=== PATIENT | female | born 1970 | race Caucasian/White ===

== ENCOUNTER 2018-04-03 20:25 | Emergency (ER) | payer MEDICARE, MEDICAID ==
[~2018-04-03] VITALS: Ht 167.6 cm; Wt 100.0 kg
[~2018-04-03 20:25] MED LIST: ALBU6.7H INH; BACDS PO; CEPH-357 PO; CYCL-1 PO; ESCI10TA45 PO; ESCI20TA29 PO; EST1T PO; MECL-111 PO; PSEU120T84 PO
[2018-04-03] MEDS ORDERED: diphenhydrAMINE 50 mg/ml inj IV ONE (21:00)
[2018-04-03] MEDS ORDERED: predniSONE 20 mg tablet PO ONE (21:00)
[2018-04-03] MEDS ORDERED: famotidine/PF 10 mg/ml inj IV ONE (21:00)
[2018-04-03 21:45] LABS: BASOPHILS # (AUTO) 0.1 X10'3 (0-0.2); BASOPHILS % (AUTO) 0.6 % (0-1); EOSINOPHILS # (AUTO) 0.1 X10'3 (0-0.9); HEMATOCRIT 41.2 % (35.0-45.0); HEMOGLOBIN 14.2 g/dl (12.0-16.0); LYMPHOCYTES # (AUTO) 3.6 X10'3 (1.1-4.8); MEAN CORPUSCULAR HEMOGLOBIN 30.9 PG (27.0-31.0); MEAN CORPUSCULAR HGB CONC 34.5 % (33.0-36.5); MEAN CORPUSCULAR VOLUME 89.5 FL (78-98); MEAN PLATELET VOLUME 9.5 FL (7.4-10.4); MONOCYTES # (AUTO) 0.4 X10'3 (0-0.9); MONOCYTES % (AUTO) 5.1 % (2-12); NEUTROPHILS # (AUTO) 4.4 X10'3 (1.8-7.7); NEUTROPHILS % (AUTO) 51.3 % (42-75); PARTIAL THROMBOPLASTIN TIME 25 SECONDS (22-32); PLATELET COUNT 187 X10'3 (140-440); PROTHROMBIN TIME 10.4 SECONDS (9.0-12.0); RED CELL DISTRIBUTION WIDTH 12.1 % (11.5-14.5); WHITE BLOOD COUNT 8.6 X10'3 (4.5-11.0)
[2018-04-03 21:54] LABS: ALANINE AMINOTRANSFERASE 45 U/L (12-78); ALBUMIN 3.7 G/DL (3.4-5.0); ALKALINE PHOSPHATASE 99 IU/L (46-116); ANION GAP 9 (8-16); BILIRUBIN,TOTAL 0.7 MG/DL (0.1-1.0); BLOOD UREA NITROGEN 11 MG/DL (7-18); CALCIUM 9.1 MG/DL (8.5-10.1); CHLORIDE 104 MMOL/L (99-107); GLUCOSE 121 MG/DL (70-104); SODIUM 141 MMOL/L (135-145); TOTAL CARBON DIOXIDE 27.7 MMOL/L (24-32); TOTAL PROTEIN 7.3 G/DL (6.4-8.2); eGFR 60 ML/MIN
[2018-04-03 21:55] LABS: ASPARTATE AMINO TRANSFERASE 30 U/L (10-37); POTASSIUM 4.3 MMOL/L (3.5-5.1)
[2018-04-03 22:00] VITALS: BP 125/83
== END 2018-04-03 22:24 | disposition home or self-care (01) ==
LOC: ER 20:26
DX: L23.9 Allergic contact dermatitis, unspecified cause (principal); I77.6 Arteritis, unspecified; I10 Essential (primary) hypertension; G89.29 Other chronic pain; F41.9 Anxiety disorder, unspecified; F32.9 Major depressive disorder, single episode, unspecified; Z90.49 Acquired absence of other specified parts of digestive tract; Z90.710 Acquired absence of both cervix and uterus; Z96.89 Presence of other specified functional implants; Z88.5 Allergy status to narcotic agent; Z88.8 Allergy status to other drugs, medicaments and biological substances; Z79.899 Other long term (current) drug therapy
CPT/HCPCS: 36415; 80053; 85025; 85610; 85730; 96374; 96375; 99284; J1200; J3490; J7512

== ENCOUNTER 2018-05-04 21:50 | Emergency (ER) | payer MEDICARE, MEDICAID ==
[~2018-05-04] VITALS: Ht 167.6 cm; Wt 97.7 kg
[2018-05-04 22:17] LABS: BASOPHILS # (AUTO) 0.1 X10'3 (0-0.2); BASOPHILS % (AUTO) 0.7 % (0-1); EOSINOPHILS # (AUTO) 0.2 X10'3 (0-0.9); EOSINOPHILS % (AUTO) 1.7 % (0-6); HEMATOCRIT 41.1 % (35.0-45.0); LYMPHOCYTES # (AUTO) 4.3 X10'3 (1.1-4.8); LYMPHOCYTES % (AUTO) 41.1 % (21-51); MEAN CORPUSCULAR HEMOGLOBIN 30.4 PG (27.0-31.0); MEAN CORPUSCULAR VOLUME 89.4 FL (78-98); MEAN PLATELET VOLUME 8.6 FL (7.4-10.4); MONOCYTES # (AUTO) 0.6 X10'3 (0-0.9); NEUTROPHILS # (AUTO) 5.2 X10'3 (1.8-7.7); NEUTROPHILS % (AUTO) 50.5 % (42-75); PLATELET COUNT 225 X10'3 (140-440); RED CELL DISTRIBUTION WIDTH 12.9 % (11.5-14.5); WHITE BLOOD COUNT 10.4 X10'3 (4.5-11.0)
[2018-05-04] MEDS ORDERED: OMEP-50 PO (22:32)
[2018-05-04] MEDS ORDERED: BUSP10TA3 PO (22:32)
[2018-05-04] MEDS ORDERED: KEN0.1O TP (22:32)
[2018-05-04] MEDS ORDERED: GABA800T2 PO (22:32)
[2018-05-04] MEDS ORDERED: DOCU100C33 PO (22:32)
[2018-05-04] MEDS ORDERED: LURA80TA3 PO (22:32)
[2018-05-04] MEDS ORDERED: MORP60TA66 PO (22:32)
[2018-05-04] MEDS ORDERED: HYDR-3973 PO (22:32)
[2018-05-04] MEDS ORDERED: LISI-600 PO (22:32)
[2018-05-04] MEDS ORDERED: FLUO-1 PO (22:32)
[2018-05-04] MEDS ORDERED: TRAZ-219 PO (22:32)
[2018-05-04] MEDS ORDERED: HYDR-3686 PO (22:32)
[2018-05-04] MEDS ORDERED: LAMO100T89 PO (22:32)
[2018-05-04 22:33] LABS: ALANINE AMINOTRANSFERASE 50 U/L (12-78); ALBUMIN 3.6 G/DL (3.4-5.0); ALKALINE PHOSPHATASE 92 IU/L (46-116); ANION GAP 10 (8-16); ASPARTATE AMINO TRANSFERASE 19 U/L (10-37); BILIRUBIN,TOTAL 0.5 MG/DL (0.1-1.0); BLOOD UREA NITROGEN 9 MG/DL (7-18); BUN/CREATININE RATIO 6.1 (6.6-38.0); CALCIUM 8.8 MG/DL (8.5-10.1); CHLORIDE 101 MMOL/L (99-107); CREATININE 1.47 MG/DL (0.40-0.90); GLUCOSE 169 MG/DL (70-104); POTASSIUM 3.5 MMOL/L (3.5-5.1); SODIUM 139 MMOL/L (135-145); TOTAL CARBON DIOXIDE 28.1 MMOL/L (24-32); TOTAL PROTEIN 7.3 G/DL (6.4-8.2); eGFR 38 ML/MIN
[2018-05-04] MEDS ORDERED: CYCL10TA10 PO (22:33)
[2018-05-04] MEDS ORDERED: LORA0.5T PO (22:36)
[2018-05-04 22:42] LABS: ETHANOL < 0.010 GM/DL (0.0-0.010); MAGNESIUM 1.8 MG/DL (1.5-2.4)
[2018-05-04] MEDS ORDERED: normal saline 1000ml 1,000 ML IV ONE (22:50)
[2018-05-04 22:53] LABS: ACETAMINOPHEN < 2.0 UG/ML (10-30)
[2018-05-05 00:05] LABS: CLARITY,URINE CLEAR (Clear); COLOR,URINE STRAW (Yellow); GLUCOSE, URINE NEGATIVE (Neg); KETONES,URINE NEGATIVE (Neg); LEUKOCYTE ESTERASE ,URINE NEGATIVE (Neg); NITRITES, URINE NEGATIVE (Neg); OCCULT BLOOD,URINE NEGATIVE (Neg); PROTEIN,URINE NEGATIVE (Neg); UA COLLECTION TYPE CLN CATCH MIDSTREAM; URINE HCG NEGATIVE (NEG)
[2018-05-05 00:18] LABS: URINE AMPHETAMINE SCREEN NEGATIVE (Neg); URINE BARBITUATE SCREEN NEGATIVE (Neg); URINE BENZODIAZEPINES SCREEN NEGATIVE (Neg); URINE CANNABINOID SCREEN NEGATIVE (Neg); URINE COCAINE SCREEN NEGATIVE (Neg); URINE METHADONE SCREEN NEGATIVE (Neg); URINE OPIATE SCREEN POSITIVE (Neg); URINE PHENCYCLIDINE SCREEN NEGATIVE (Neg)
[2018-05-05] MEDS ORDERED: normal saline 1000ml 1,000 ML IV ONE (00:35)
[2018-05-05] MEDS ORDERED: LORazepam 0.5 MG tablet PO PRN (09:30)
[2018-05-05] MEDS ORDERED: ibuprofen 200mg tablet PO ONE (11:10)
[2018-05-05] MEDS ORDERED: cyclobenzaprine 10mg tablet PO ONE (11:25)
[2018-05-05] MEDS ORDERED: lamoTRIgine 25mg tablet PO ONE (11:25)
[2018-05-05] MEDS ORDERED: busPIRone 5mg tablet PO ONE (11:25)
[2018-05-05] MEDS ORDERED: morphine ER 30mg tablet PO ONE (11:25)
[2018-05-05] MEDS ORDERED: lisinopril 20mg tablet PO ONE (11:25)
[2018-05-05] MEDS ORDERED: estradiol 1mg tablet PO ONE (11:25)
[2018-05-05] MEDS ORDERED: pantoprazole 40mg Tablet.DR PO ONE (11:25)
[2018-05-05] MEDS ORDERED: FLUoxetine 20mg capsule PO ONE (11:25)
[2018-05-05] MEDS ORDERED: docusate sod 100mg capsule PO ONE (11:25)
[2018-05-05] MEDS ORDERED: lurasidone 20mg tablet PO ONE (11:25)
[2018-05-05] MEDS: gabapentin 400mg capsule PO SCH ×2 (13:35→21:20)
[2018-05-05] MEDS: hydrOXYzine 25 MG tablet PO SCH (16:00)
[2018-05-05] MEDS ORDERED: traZODone 50mg tablet PO SCH (21:00)
[2018-05-05] MEDS: lamoTRIgine 25mg tablet PO SCH (21:19)
[2018-05-05] MEDS: docusate sod 100mg capsule PO SCH (21:20)
[2018-05-05] MEDS: morphine ER 30mg tablet PO SCH (21:20)
[2018-05-05] MEDS: cyclobenzaprine 10mg tablet PO SCH (21:20)
[2018-05-05] MEDS: triamcinolone acet 0.1% cream 15gm TP SCH (21:21)
[2018-05-05] MEDS: busPIRone 5mg tablet PO SCH (21:21)
[2018-05-05] MEDS: HYDROcodone/acetaminophen 10/325mg tab PO PRN (21:26)
[2018-05-06] MEDS: hydrOXYzine 25 MG tablet PO SCH ×2 (01:31→08:52)
[2018-05-06] MEDS: HYDROcodone/acetaminophen 10/325mg tab PO PRN (05:52)
[2018-05-06 05:55] VITALS: BP_DIAS 91
[2018-05-06] MEDS ORDERED: estradiol 1mg tablet PO SCH (08:00)
[2018-05-06] MEDS ORDERED: lurasidone 20mg tablet PO SCH (08:00)
[2018-05-06] MEDS: triamcinolone acet 0.1% cream 15gm TP SCH (08:00)
[2018-05-06] MEDS ORDERED: lisinopril 20mg tablet PO SCH (08:00)
[2018-05-06] MEDS ORDERED: FLUoxetine 20mg capsule PO SCH (08:00)
[2018-05-06] MEDS ORDERED: pantoprazole 40mg Tablet.DR PO SCH (08:00)
[2018-05-06] MEDS: morphine ER 30mg tablet PO SCH (08:50)
[2018-05-06] MEDS: gabapentin 400mg capsule PO SCH ×2 (08:50→12:55)
[2018-05-06] MEDS: cyclobenzaprine 10mg tablet PO SCH (08:51)
[2018-05-06] MEDS: busPIRone 5mg tablet PO SCH (08:51)
[2018-05-06] MEDS: docusate sod 100mg capsule PO SCH (08:52)
[2018-05-06 09:00] VITALS: BP_SYST 72
[2018-05-06] MEDS: lamoTRIgine 25mg tablet PO SCH (10:07)
[2018-05-06] MEDS ORDERED: HYDROcodone/acetaminophen 10/325mg tab PO ONE (14:50)
== END 2018-05-06 15:23 ==
LOC: ER 21:50
DX: T42.4X2A Poisoning by benzodiazepines, intentional self-harm, initial encounter (principal); I10 Essential (primary) hypertension; M19.90 Unspecified osteoarthritis, unspecified site; F41.9 Anxiety disorder, unspecified; F32.9 Major depressive disorder, single episode, unspecified; Z88.6 Allergy status to analgesic agent; Z88.8 Allergy status to other drugs, medicaments and biological substances; Z79.899 Other long term (current) drug therapy; Z90.49 Acquired absence of other specified parts of digestive tract; Z98.890 Other specified postprocedural states; Z90.710 Acquired absence of both cervix and uterus; Z95.0 Presence of cardiac pacemaker; Y92.89 Other specified places as the place of occurrence of the external cause
CPT/HCPCS: 36415; 80053; 80305; 80320; 80329; 81003; 81025; 83735; 84100; 84443; 85025; 93005; 99285; Q0177; J7030

== ENCOUNTER 2020-01-10 12:58 | Emergency (ER) | payer MEDICARE, MEDICAID ==
[~2020-01-10] VITALS: Ht 167.6 cm; Wt 100.2 kg
[~2020-01-10 12:58] MED LIST changes: -ALBU6.7H INH; -BACDS PO; +BUSP10TA3 PO; -CEPH-357 PO; -CYCL-1 PO; +CYCL10TA10 PO; +DOCU100C33 PO; -ESCI10TA45 PO; -ESCI20TA29 PO; +FLUO-1 PO; +GABA800T11 PO; +HYDR-3686 PO; +HYDR-3973 PO; +KEN0.1O TP; +LAMO100T PO; +LISI-600 PO; +LORA0.5T PO; +LURA80TA3 PO; -MECL-111 PO; +MORP60TA77 PO; +OMEP-50 PO; -PSEU120T84 PO; +TRAZ-256 PO
[2020-01-10] MEDS ORDERED: aspirin 81mg tab.chew PO ONE (13:15)
[2020-01-10 13:33] LABS: BASOPHILS # (AUTO) 0.1 X10'3 (0-0.2); BASOPHILS % (AUTO) 0.7 % (0-1); EOSINOPHILS # (AUTO) 0.4 X10'3 (0-0.9); EOSINOPHILS % (AUTO) 4.7 % (0-6); HEMATOCRIT 37.6 % (35.0-45.0); HEMOGLOBIN 13.2 g/dl (12.0-16.0); LYMPHOCYTES # (AUTO) 3.5 X10'3 (1.1-4.8); LYMPHOCYTES % (AUTO) 37.3 % (21-51); MEAN CORPUSCULAR HEMOGLOBIN 31.8 PG (27.0-31.0); MEAN CORPUSCULAR HGB CONC 35.1 g/dL (33.0-36.5); MEAN CORPUSCULAR VOLUME 90.4 FL (78-98); MEAN PLATELET VOLUME 8.3 FL (7.4-10.4); MONOCYTES # (AUTO) 0.5 X10'3 (0-0.9); MONOCYTES % (AUTO) 5.1 % (2-12); NEUTROPHILS # (AUTO) 4.9 X10'3 (1.8-7.7); NEUTROPHILS % (AUTO) 52.2 % (42-75); PLATELET COUNT 203 X10'3 (140-440); RED BLOOD COUNT 4.16 X10'6 (4.20-5.60); RED CELL DISTRIBUTION WIDTH 13.8 % (11.5-14.5); WHITE BLOOD COUNT 9.3 X10'3 (4.5-11.0)
[2020-01-10 13:56] LABS: ALANINE AMINOTRANSFERASE 58 U/L (12-78); ALBUMIN 3.5 G/DL (3.4-5.0); ALKALINE PHOSPHATASE 81 IU/L (46-116); ANION GAP 10 (8-16); ASPARTATE AMINO TRANSFERASE 34 U/L (10-37); BILIRUBIN,TOTAL 0.6 MG/DL (0.1-1.0); BLOOD UREA NITROGEN 8 MG/DL (7-18); BUN/CREATININE RATIO 6.8 (6.6-38.0); CALCIUM 8.6 MG/DL (8.5-10.1); CHLORIDE 105 MMOL/L (99-107); CREATININE 1.17 MG/DL (0.40-0.90); GLUCOSE 122 MG/DL (70-104); POTASSIUM 3.7 MMOL/L (3.5-5.1); SODIUM 142 MMOL/L (135-145); TOTAL CARBON DIOXIDE 26.6 MMOL/L (24-32); eGFR 50 ML/MIN
[2020-01-10 15:03] LABS: D-DIMER 0.31 MG/L FEU (0-0.50)
[2020-01-10] MEDS ORDERED: ketorolac trometh. 30mg/ml inj. IM ONE (15:10)
[2020-01-10 15:23] VITALS: BP 158/80
== END 2020-01-10 15:25 | disposition home or self-care (01) ==
LOC: ER 12:59
DX: R07.89 Other chest pain (principal); R00.2 Palpitations; M19.90 Unspecified osteoarthritis, unspecified site; I10 Essential (primary) hypertension; G89.29 Other chronic pain; F41.9 Anxiety disorder, unspecified; F32.9 Major depressive disorder, single episode, unspecified; Z90.49 Acquired absence of other specified parts of digestive tract; Z90.710 Acquired absence of both cervix and uterus; Z95.0 Presence of cardiac pacemaker; Z98.890 Other specified postprocedural states; Z88.8 Allergy status to other drugs, medicaments and biological substances; Z79.899 Other long term (current) drug therapy
CPT/HCPCS: 36415; 71045; 80053; 84484; 85025; 85379; 93005; 96372; 99285; J1885

== ENCOUNTER 2020-10-06 22:15 | Emergency (ER) | payer MEDICAID, MEDICARE ==
[~2020-10-06] VITALS: Ht 167.6 cm; Wt 100.0 kg
[~2020-10-06 22:15] MED LIST changes: -LISI-600 PO; +LISI20TA28 PO
[2020-10-07] MEDS ORDERED: oxyCODONE IR 5mg (immed. release) tablet PO ONE (02:20)
[2020-10-07 03:03] VITALS: BP 145/87
== END 2020-10-07 03:06 | disposition home or self-care (01) ==
LOC: ER 22:16
DX: M79.671 Pain in right foot (principal); I10 Essential (primary) hypertension; K21.9 Gastro-esophageal reflux disease without esophagitis; M19.90 Unspecified osteoarthritis, unspecified site; G89.29 Other chronic pain; F32.9 Major depressive disorder, single episode, unspecified; F41.9 Anxiety disorder, unspecified; Z90.49 Acquired absence of other specified parts of digestive tract; Z90.710 Acquired absence of both cervix and uterus; Z98.890 Other specified postprocedural states; Z95.0 Presence of cardiac pacemaker; Z86.2 Personal history of diseases of the blood and blood-forming organs and certain disorders involving the immune mechanism; Z88.8 Allergy status to other drugs, medicaments and biological substances; Z79.899 Other long term (current) drug therapy; X50.1XXA Overexertion from prolonged static or awkward postures, initial encounter; Y93.89 Activity, other specified; Y92.89 Other specified places as the place of occurrence of the external cause; Y99.8 Other external cause status
CPT/HCPCS: 73630; 99284

== ENCOUNTER 2021-09-09 18:08 | Emergency (ER) | payer MEDICAID ==
[~2021-09-09] VITALS: Ht 167.6 cm; Wt 95.5 kg
[~2021-09-09 18:08] MED LIST changes: +CYCL-524 PO; -CYCL10TA10 PO; +LURA80TA2 PO; -LURA80TA3 PO; -OMEP-50 PO; +OMEP20CA16 PO
[2021-09-09 18:16] VITALS: BP 170/110
[2021-09-09] MEDS ORDERED: morphine 4 MG/ML inj SYRINge IM ONE (20:30)
[2021-09-09] MEDS ORDERED: ketorolac trometh inj. 60 MG/2 ML VIAL IM ONE (20:30)
== END 2021-09-09 21:02 | disposition home or self-care (01) ==
LOC: ER 18:09
DX: M54.50 Low back pain, unspecified (principal); R20.0 Anesthesia of skin; I10 Essential (primary) hypertension; K21.9 Gastro-esophageal reflux disease without esophagitis; M19.90 Unspecified osteoarthritis, unspecified site; G89.29 Other chronic pain; F41.9 Anxiety disorder, unspecified; F32.A Depression, unspecified; Z86.2 Personal history of diseases of the blood and blood-forming organs and certain disorders involving the immune mechanism; Z90.49 Acquired absence of other specified parts of digestive tract; Z90.710 Acquired absence of both cervix and uterus; Z95.0 Presence of cardiac pacemaker; Z98.890 Other specified postprocedural states; Z88.8 Allergy status to other drugs, medicaments and biological substances; Z79.899 Other long term (current) drug therapy; W19.XXXA Unspecified fall, initial encounter; Y93.89 Activity, other specified; Y92.89 Other specified places as the place of occurrence of the external cause; Y99.8 Other external cause status
CPT/HCPCS: 72074; 72100; 96372; 99284; J1885; J2270

== ENCOUNTER 2022-04-23 13:59 | Emergency (ER) | payer MEDICARE, MEDICAID ==
[~2022-04-23] VITALS: Ht 167.6 cm; Wt 90.0 kg
[2022-04-23 14:58] LABS: BASOPHILS # (AUTO) 0.1 X10'3 (0-0.2); BASOPHILS % (AUTO) 0.7 % (0-1); EOSINOPHILS % (AUTO) 0.2 % (0-6); HEMOGLOBIN 14.5 g/dl (12.0-16.0); LYMPHOCYTES # (AUTO) 3.3 X10'3 (1.1-4.8); LYMPHOCYTES % (AUTO) 39.9 % (21-51); MEAN CORPUSCULAR HEMOGLOBIN 27.7 PG (27.0-31.0); MEAN CORPUSCULAR HGB CONC 33.7 g/dL (33.0-36.5); MEAN CORPUSCULAR VOLUME 82.2 FL (78-98); MEAN PLATELET VOLUME 9.4 FL (7.4-10.4); MONOCYTES # (AUTO) 0.4 X10'3 (0-0.9); MONOCYTES % (AUTO) 4.9 % (2-12); NEUTROPHILS # (AUTO) 4.5 X10'3 (1.8-7.7); NEUTROPHILS % (AUTO) 54.3 % (42-75); PLATELET COUNT 192 X10'3 (140-440); RED BLOOD COUNT 5.23 X10'6 (4.20-5.60); RED CELL DISTRIBUTION WIDTH 12.4 % (11.5-14.5); WHITE BLOOD COUNT 8.3 X10'3 (4.5-11.0)
[2022-04-23 15:15] LABS: ALANINE AMINOTRANSFERASE 45 U/L (12-78); ALKALINE PHOSPHATASE 177 IU/L (46-116); ANION GAP 10 (8-16); ASPARTATE AMINO TRANSFERASE 23 U/L (10-37); BILIRUBIN,TOTAL 0.8 MG/DL (0.1-1.0); BLOOD UREA NITROGEN 7 MG/DL (7-18); BUN/CREATININE RATIO 5.9 (6.6-38.0); CALCIUM 9.4 MG/DL (8.5-10.1); CHLORIDE 89 MMOL/L (99-107); CREATININE 1.18 MG/DL (0.40-0.90); LIPASE 184 U/L (73-393); MAGNESIUM 1.9 MG/DL (1.5-2.4); POTASSIUM 4.3 MMOL/L (3.5-5.1); SODIUM 124 MMOL/L (135-145); TOTAL CARBON DIOXIDE 24.6 MMOL/L (24-32); eGFR 48 ML/MIN
[2022-04-23 15:18] LABS: CLARITY,URINE SLIGHTLY CLOUDY (Clear); GLUCOSE, URINE >=1000 mg/dl (Neg); KETONES,URINE NEGATIVE (Neg); LEUKOCYTE ESTERASE ,URINE NEGATIVE (Neg); NITRITES, URINE NEGATIVE (Neg); OCCULT BLOOD,URINE NEGATIVE (Neg); PH,URINE 5.5 (4.8-8.0); PROTEIN,URINE NEGATIVE (Neg); UROBILINOGEN,URINE 0.2 E.U/dL (0.2-1.0)
[2022-04-23 15:19] LABS: GLUCOSE 558 MG/DL (70-104)
[2022-04-23 15:24] LABS: COLOR,URINE STRAW (Yellow); UA COLLECTION TYPE NON-SPECIFIED
[2022-04-23 15:25] LABS: SQUAMOUS EPITHELIAL CELL,UR FEW /LPF (FEW); YEAST FEW /HPF (NEGATIVE)
[2022-04-23 15:26] LABS: BACTERIA,URINE FEW /HPF (Neg); RBC,URINE 0-2 /HPF (0-2); WBC,URINE 0-4 /HPF (0-4)
[2022-04-23] MEDS ORDERED: insulin regular, human 10 units/0.1 ml syringe IV ONE (16:40)
[2022-04-23] MEDS ORDERED: normal saline 1000ML IV soln IVB ONE (16:40)
[2022-04-23 18:04] VITALS: BP 151/103
--- NOTE | 2022-04-23 19:46 | NUR ---
IV DC'D PT BEING DISCHARGED DRESSING APPLIED
== END 2022-04-23 19:48 | disposition home or self-care (01) ==
LOC: ER 14:02
DX: E11.65 Type 2 diabetes mellitus with hyperglycemia (principal); R63.1 Polydipsia; R35.89 Other polyuria; I10 Essential (primary) hypertension; K21.9 Gastro-esophageal reflux disease without esophagitis; M19.90 Unspecified osteoarthritis, unspecified site; G89.29 Other chronic pain; M54.50 Low back pain, unspecified; Z88.8 Allergy status to other drugs, medicaments and biological substances; Z88.5 Allergy status to narcotic agent; Z90.49 Acquired absence of other specified parts of digestive tract; Z90.710 Acquired absence of both cervix and uterus
CPT/HCPCS: 36415; 80053; 81001; 82948; 83690; 83735; 85025; 96361; 96374; 99283; J1815; J7030

== ENCOUNTER 2022-07-04 09:27 | Emergency (ER) | payer MEDICARE, MEDICAID ==
[~2022-07-04] VITALS: Ht 167.6 cm; Wt 88.2 kg
[~2022-07-04 09:27] MED LIST changes: +BENZ1TAB7 PO; -BUSP10TA3 PO; +BUSP30TA3 PO; +CLON-330 PO; +CYCL-1 PO; -CYCL-524 PO; -DOCU100C33 PO; +DULA0.75 SQ; -EST1T PO; -FLUO-1 PO; +GABA600T13 PO; -GABA800T11 PO; +HYDR-3972 PO; -HYDR-3973 PO; -KEN0.1O TP; -LAMO100T PO; +LAMO150T6 PO; -LISI20TA28 PO; +LISI40TA13 PO; -LORA0.5T PO; +LURA120T PO; -LURA80TA2 PO; +MORP-92 PO; -MORP60TA77 PO; -OMEP20CA16 PO; +PANT40TA54 PO; +PROZ10C PO; +SOTA80TA73 PO; +SULF1TAB49 PO
[2022-07-04 10:13] LABS: CLARITY,URINE CLEAR (Clear); COLOR,URINE STRAW (Yellow); GLUCOSE, URINE NEGATIVE (Neg); KETONES,URINE NEGATIVE (Neg); LEUKOCYTE ESTERASE ,URINE NEGATIVE (Neg); NITRITES, URINE NEGATIVE (Neg); OCCULT BLOOD,URINE NEGATIVE (Neg); PROTEIN,URINE NEGATIVE (Neg)
[2022-07-04 10:17] LABS: UA COLLECTION TYPE CLN CATCH MIDSTREAM
[2022-07-04 10:40] LABS: URINE AMPHETAMINE SCREEN NEGATIVE (Neg); URINE BARBITUATE SCREEN NEGATIVE (Neg); URINE BENZODIAZEPINES SCREEN NEGATIVE (Neg); URINE CANNABINOID SCREEN NEGATIVE (Neg); URINE COCAINE SCREEN NEGATIVE (Neg); URINE METHADONE SCREEN NEGATIVE (Neg); URINE OPIATE SCREEN POSITIVE (Neg); URINE PHENCYCLIDINE SCREEN NEGATIVE (Neg)
[2022-07-04] MEDS ORDERED: normal saline 1000ML IV soln IV ONE (10:55)
[2022-07-04 11:10] LABS: BASOPHILS % (AUTO) 0.3 % (0-1); EOSINOPHILS # (AUTO) 0.3 X10'3 (0-0.9); EOSINOPHILS % (AUTO) 3.2 % (0-6); HEMATOCRIT 37.8 % (35.0-45.0); HEMOGLOBIN 12.6 g/dl (12.0-16.0); LYMPHOCYTES # (AUTO) 3.4 X10'3 (1.1-4.8); LYMPHOCYTES % (AUTO) 37.9 % (21-51); MEAN CORPUSCULAR HGB CONC 33.2 g/dL (33.0-36.5); MEAN CORPUSCULAR VOLUME 84.3 FL (78-98); MEAN PLATELET VOLUME 8.4 FL (7.4-10.4); MONOCYTES # (AUTO) 0.6 X10'3 (0-0.9); NEUTROPHILS # (AUTO) 4.6 X10'3 (1.8-7.7); NEUTROPHILS % (AUTO) 51.6 % (42-75); PLATELET COUNT 183 X10'3 (140-440); RED BLOOD COUNT 4.49 X10'6 (4.20-5.60); RED CELL DISTRIBUTION WIDTH 16.5 % (11.5-14.5); WHITE BLOOD COUNT 8.9 X10'3 (4.5-11.0)
[2022-07-04 11:34] LABS: ALANINE AMINOTRANSFERASE 30 U/L (12-78); ALBUMIN 3.3 G/DL (3.4-5.0); ALBUMIN/GLOBULIN RATIO 0.9 (1.1-1.5); ALKALINE PHOSPHATASE 86 IU/L (46-116); ANION GAP 8 (8-16); ASPARTATE AMINO TRANSFERASE 19 U/L (10-37); BILIRUBIN,TOTAL 0.5 MG/DL (0.1-1.0); BLOOD UREA NITROGEN 11 MG/DL (7-18); BUN/CREATININE RATIO 8.9 (6.6-38.0); CALCIUM 8.5 MG/DL (8.5-10.1); CHLORIDE 98 MMOL/L (99-107); CREATININE 1.23 MG/DL (0.40-0.90); GLUCOSE 124 MG/DL (70-104); MAGNESIUM 1.6 MG/DL (1.5-2.4); POTASSIUM 4.5 MMOL/L (3.5-5.1); SODIUM 132 MMOL/L (135-145); TOTAL CARBON DIOXIDE 25.9 MMOL/L (24-32); TOTAL PROTEIN 6.8 G/DL (6.4-8.2); eGFR 46 ML/MIN
[2022-07-04] MEDS ORDERED: normal saline 1000ML IV soln IVB ONE (12:30)
[2022-07-04 13:46] VITALS: BP 105/73
== END 2022-07-04 13:52 | disposition home or self-care (01) ==
LOC: ER 09:28
DX: I95.9 Hypotension, unspecified (principal); I10 Essential (primary) hypertension; K21.9 Gastro-esophageal reflux disease without esophagitis; E11.9 Type 2 diabetes mellitus without complications; M19.90 Unspecified osteoarthritis, unspecified site; G89.29 Other chronic pain; M54.50 Low back pain, unspecified; Z88.5 Allergy status to narcotic agent; Z88.8 Allergy status to other drugs, medicaments and biological substances; Z90.49 Acquired absence of other specified parts of digestive tract; Z98.890 Other specified postprocedural states; Z90.710 Acquired absence of both cervix and uterus
CPT/HCPCS: 36415; 80053; 80305; 81003; 82948; 83605; 83735; 84145; 85025; 87040; 93005; 96360; 96361; 99284; J7030

== ENCOUNTER 2024-09-05 08:19 | Day surgery (SDC) | payer MEDICARE, MEDICAID ==
[2024-09-01 12:02] LABS: BASOPHILS % (AUTO) 0.6 % (0-1); EOSINOPHILS % (AUTO) 0.6 % (0-6); LYMPHOCYTES # (AUTO) 2.4 X10'3 (1.1-4.8); LYMPHOCYTES % (AUTO) 33.4 % (21-51); MEAN CORPUSCULAR HEMOGLOBIN 33.4 PG (27.0-31.0); MEAN CORPUSCULAR HGB CONC 35.6 g/dL (33.0-36.5); MEAN CORPUSCULAR VOLUME 93.9 FL (78-98); MEAN PLATELET VOLUME 9.3 FL (7.4-10.4); MONOCYTES # (AUTO) 0.4 X10'3 (0-0.9); MONOCYTES % (AUTO) 5.6 % (2-12); NEUTROPHILS # (AUTO) 4.4 X10'3 (1.8-7.7); NEUTROPHILS % (AUTO) 59.8 % (42-75); PRE OP HEMATOCRIT 40.7 % (35.0-45.0); PRE OP HEMOGLOBIN 14.5 g/dL (12.0-16.0); PRE OP PLATELET COUNT 170 X10'3 (140-440); PRE OP WHITE BLOOD COUNT 7.3 10'3 (4.8-10.8); RED BLOOD COUNT 4.33 X10'6 (4.20-5.60)
[2024-09-01 12:15] LABS: PRE OP PROTIME 10.9 SECONDS (9.0-12.0)
[2024-09-01 12:17] LABS: ALBUMIN 3.5 G/DL (3.4-5.0); ALKALINE PHOSPHATASE 89 IU/L (46-116); BLOOD UREA NITROGEN 10 MG/DL (7-18); BUN/CREATININE RATIO 10.8 (10.0-20.0); CALCIUM 8.6 MG/DL (8.5-10.1); CHLORIDE 107 MMOL/L (99-107); CREATININE 0.93 MG/DL (0.40-0.90); PRE OP ALT 39 U/L (30-65); PRE OP ANION GAP 9 (8-16); PRE OP AST 27 U/L (10-37); PRE OP BILIRUB, TOTAL 0.9 MG/DL (0.0-1.0); PRE OP GLUCOSE 138 MG/DL (70-104); PRE OP POTASSIUM 4.2 MMOL/L (3.4-5.1); PRE OP SODIUM 141 MMOL/L (135-145); TOTAL CARBON DIOXIDE 25.3 MMOL/L (24-32); eGFR 63 ML/MIN
[2024-09-05] VITALS (11 sets, daily range): BP systolic 132–165; BP diastolic 79–105; PULSE 60–75; RESP 9–20; TEMP 97.5; O2SAT 75–98
[~2024-09-05] VITALS: Ht 167.6 cm; Wt 100.2 kg
[2024-09-05] MEDS: ceFAZolin 2gm in dextrose, iso 50 ML IV ONE (05:30)
[2024-09-05] MEDS: DOCUMENT DATE & TIME OF BETA-BLOCKER PO ONE (05:30)
[~2024-09-05 08:19] MED LIST changes: +ATOR20TA PO; -BENZ1TAB7 PO; +BISA-77 PO; -BUSP30TA3 PO; +CETI10TA14 PO; -CLON-330 PO; -CYCL-1 PO; +FLUO-331 PO; +GABA-1405 PO; -GABA600T13 PO; -HYDR-3686 PO; +IBUP-1985 PO; -LISI40TA13 PO; -LURA120T PO; +OMEP40CA21 PO; -PANT40TA54 PO; -PROZ10C PO; -SULF1TAB49 PO
[2024-09-05] MEDS ORDERED: LIDOcaine 1% (10mg/ml)w/preservative inj. 20ml MDV ONE ×2 (09:22→09:43)
[2024-09-05] MEDS: LIDOcaine 1% (10mg/ml) 2ml vial IM ONE (09:30)
[2024-09-05 09:38] LABS: BILIRUBIN,URINE NEGATIVE (Neg); CLARITY,URINE SLIGHTLY CLOUDY (Clear); COLOR,URINE YELLOW (Yellow); GLUCOSE, URINE NEGATIVE (Neg); KETONES,URINE NEGATIVE (Neg); LEUKOCYTE ESTERASE ,URINE NEGATIVE (Neg); NITRITES, URINE NEGATIVE (Neg); OCCULT BLOOD,URINE NEGATIVE (Neg); PROTEIN,URINE NEGATIVE (Neg)
[2024-09-05] MEDS: famotidine 20mg tablet PO ONE (09:40)
[2024-09-05] MEDS: ringers solution, lacted 1,000 ML IV SCH (09:41)
[2024-09-05 09:51] LABS: UA COLLECTION TYPE CLN CATCH MIDSTREAM
[2024-09-05 09:52] LABS: BACTERIA,URINE FEW /HPF (Neg); MUCUS STRANDS FEW /LPF (Neg); RBC,URINE 0-2 /HPF (0-2); SQUAMOUS EPITHELIAL CELL,UR MODERATE /LPF (FEW); TRANSITIONAL EPI CELLS,URINE FEW /HPF; WBC,URINE 0-4 /HPF (0-4)
[2024-09-05] MEDS ORDERED: sevoflurane 250ml liquid IH ONE (10:21)
[2024-09-05] MEDS ORDERED: ringers solution, lacted 1,000 ML IV SCH (10:25)
[2024-09-05] MEDS ORDERED: morphine 2 MG/ML inj. syringe IV PRN (10:25)
[2024-09-05] MEDS ORDERED: morphine 4 MG/ML inj SYRINge IV PRN (10:25)
[2024-09-05] MEDS ORDERED: hydrALAZINE 20mg/ml inj. IV PRN (10:25)
[2024-09-05] MEDS ORDERED: proCHLORperazine 10 MG/2 ml inj IV PRN (10:25)
[2024-09-05] MEDS ORDERED: ondansetron/PF 4mg/2ml inj IV PRN (10:25)
[2024-09-05] MEDS ORDERED: labetalol 20mg/4ml (5mg/ml) syringe IV PRN (10:25)
[2024-09-05] MEDS ORDERED: fentaNYL/PF 50MCG/1 ML 2ML syringe ONE (10:27)
[2024-09-05] MEDS ORDERED: midazolam 1 mg/ML 2ml injection ONE (10:58)
[2024-09-05] MEDS ORDERED: propofol inj 20 ML IV ONE (10:58)
[2024-09-05] MEDS ORDERED: dexamethasone sod phosphate 4mg/ml inj. ONE (10:58)
[2024-09-05] MEDS ORDERED: LIDOcaine 2% (20mg/ml) 5ml vial ONE (10:58)
[2024-09-05] MEDS ORDERED: ondansetron/PF 4mg/2ml inj ONE (10:58)
[2024-09-05] MEDS: HYDROmorphone/PF 0.2 MG/ML SYRINGE IV PRN ×2 (11:53→12:20)
[2024-09-05] MEDS: acetaminophen 1,000mg/100ml IV 100 ML IV PRN (12:20)
== END 2024-09-05 12:54 | disposition home or self-care (01) ==
LOC: PAS 08:19
PROVIDERS: ATTEND Surgery
DX: Z45.010 Encounter for checking and testing of cardiac pacemaker pulse generator [battery] (principal); I49.5 Sick sinus syndrome; E11.9 Type 2 diabetes mellitus without complications; F41.9 Anxiety disorder, unspecified; I10 Essential (primary) hypertension; M19.90 Unspecified osteoarthritis, unspecified site; Z90.710 Acquired absence of both cervix and uterus; Z79.899 Other long term (current) drug therapy; G62.9 Polyneuropathy, unspecified; Z90.49 Acquired absence of other specified parts of digestive tract; Z98.890 Other specified postprocedural states; Z79.01 Long term (current) use of anticoagulants
CPT/HCPCS: 33228; 36415; 71046; 80053; 81001; 82948; 85025; 85610; 85730; 93005; A4215; A4618; A6258; A7000; C1785; J0131; J0690; J1100; J1171; J2003; J2250; J2405; J2704; J3010; J3490; J7030; J7120; Z7506; Z7512; Z7610

== ENCOUNTER 2024-11-20 12:30 | Emergency (ER) | payer MEDICARE, MEDICAID ==
[~2024-11-20] VITALS: Ht 167.6 cm; Wt 100.6 kg
[2024-11-20 12:50] VITALS: BP 139/100; PULSE 98; RESP 16; TEMP 99; O2SAT 96
--- NOTE | 2024-11-20 13:39 | RADIOLOGY REPORT ---
Indication: WRIST PAIN Technique: 3 views left wrist Comparison: None FINDINGS/IMPRESSION: No radiographic evidence for acute fracture or dislocation. 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
--- NOTE | 2024-11-20 14:25 | Physician Documentation ---
History of Present Illness ~ Chief Complaint: Wrist pain Stated Complaint: WRIST PAIN Time Seen by MD: 14:13 Primary Medical Doctor: Elida GARCÍA HPI 54-year-old female presents to the ED with a complaint of left wrist pain for one week. She states her 7-year-old granddaughter kicked her in the wrist and it has hurt with a range of motion since. She denies any increased swelling over the last week but has a popping sound when she rotates her wrist Day of Onset: November 20, 2024 Tetanus within 5 years: Yes Medication Reconciliation Allergies: Coded Allergies: meperidine HCl (Unverified Allergy, Unknown, ITCHING, 04/22/15) prednisone (Verified Adverse Reaction, Intermediate, BECAME AGGESSIVE/ANGRY, 04/03/18) Scheduled Atorvastatin Calcium* (Lipitor*), 1 TAB PO DAILY, (Reported) Cetirizine HCl (Cetirizine HCl), 1 TAB PO DAILY, (Reported) Dulaglutide (Trulicity), 0.75 MG SQ Q7D, (Reported) Fluoxetine HCl (Fluoxetine HCl), 20 MG PO DAILY, (Reported) Gabapentin (Gabapentin), 1 TAB PO Q8H, (Reported) Hydrocodone Bit/Acetaminophen (Hydrocodon-Acetaminophn 10-325 tablet), 1 TAB PO QID, (Reported) Lamotrigine (Lamotrigine), 1 TAB PO DAILY, (Reported) Morphine Sulfate (Morphine Sulfate Er), 15 MG PO QID, (Reported) Omeprazole (Prilosec), 1 CAP PO DAILY, (Reported) Sotalol Hcl* (Betapace*), 0.5 TAB PO BID, (Reported) Trazodone HCl (Trazodone HCl), 2 TAB PO HS, (Reported) Scheduled PRN Bisacodyl (Bisacodyl), 2 TAB PO DAILY PRN for constipation, (Reported) Ibuprofen (Ibuprofen), 1 TAB PO TID PRN for pain, (Reported) Past Medical History Past Medical History: Arrhythmia, Hypertension, GERD, Anemia, Diabetes, Arthritis, Chronic Back Pain, Anxiety, Depression Past Surgical History: cholecystectomy, , hysterectomy, orthopedic surgeries, pacemaker Patient History: FH: diabetes mellitus Alcohol Use: Rarely Drug Use: none Lives with: Spouse, Family Lives In: Home Occupation: disabled Review of Systems All Other Systems at this time: Reviewed and Negative ROS As stated above in the HPI, otherwise all systems are reviewed and negative. Physical Exam Vital Signs: Temperature: 99.0, Source: Oral, Heart Rate: 98, Respiratory Rate: 16, BP: 139/100, Pulse Oximetry: 96, Weight: 100.600 Oxygen Flow Rate: 0 Physical Exam General: Alert, no apparent distress. HEENT: PERRL, EOMI, no injection, moist mucous membranes. Extremities: Normal range of motion, no deformity. pooping with a range of motion in the medial aspect of the left wrist Neurologic: Oriented x4. Psychiatric: Normal mood and affect. Skin: Normal color, warm and dry. No edema, no ecchymosis. Progress Results/Orders Results/Orders Orders - CHRISTIANO ORTEGA PHARMACY TECHNICIAN PER DIEM Ortho Orders (11/20/24 ) Completed Orders - CHRISTIANO ORTEGA PHARMACY TECHNICIAN PER DIEM Ketorolac Trometh 15mg/Ml Vial (Toradol (11/20/24 14:30) Medications Received in ER Medications (Trade) Dose Ordered Sig/Abigail Route PRN Reason Start Time Stop Time Status Last Admin Dose Admin (Toradol injection) 15 mg ONCE ONCE IM 11/20/24 14:30 11/20/24 14:33 DC 11/20/24 14:45 15 MG Vital Signs 11/20/24 12:50 Temp 99.0 Pulse 98 Resp 16 B/P (MAP) 139/100 Pulse Ox 96 O2 Flow Rate 0 Medical Decision Making Findings Per my interpretation the patient's x-ray there was no signs of acute fracture. However I am going to place her in a Velcro thumb spica based on her pain with range of motion no snuffbox tenderness. I am going to have her follow up with the ortho if she continues to have issues. Wrist Diff Dx:Considerations: Include: Abrasion, Arthritis, DJD, Gout, Rheumatoid, Septic, Carpal tunnel snydrome, Contusion, Dislocation, Fracture- carpal, Fracture-radius, Fracture-ulna, Ganglion, Laceration, Neurovascular injury, Open fracture, Strain, Other Departure Disposition: 01 HOME / SELF CARE / HOMELESS Impression: Primary Impression: Wrist joint pain Condition: Stable Discharge Instructions: Wrist Pain, Adult Additional Instructions: Follow up with the primary care in case you need to get enough referral to see Orthopedics for further problems when they are wrists I am you may use the wrist immobilizer for the next week to two weeks while it heals Referrals: NO PRIMARY CARE PROVIDER (PCP) Signature Scribe Signature: N Attestation: The note accurately reflects work and decisions made by me.Christiano Evans NP 11/20/24 21:46 CHRISTIANO ORTEGA NP November 20, 2024 14:25
[2024-11-20] MEDS: ketorolac trometh 15mg/ml vial 15 MG/ML ML IM ONE (14:45)
== END 2024-11-20 14:53 | disposition home or self-care (01) ==
LOC: ER 12:30
DX: M25.532 Pain in left wrist (principal); E11.9 Type 2 diabetes mellitus without complications; F32.A Depression, unspecified; F41.9 Anxiety disorder, unspecified; I10 Essential (primary) hypertension; M19.90 Unspecified osteoarthritis, unspecified site; Z88.8 Allergy status to other drugs, medicaments and biological substances; Z90.49 Acquired absence of other specified parts of digestive tract; Z90.710 Acquired absence of both cervix and uterus; Z95.0 Presence of cardiac pacemaker
CPT/HCPCS: 29125; 73110; 96372; 99283; J1885; L3908